=== PATIENT | male | born 1970 | race Asian ===

== ENCOUNTER → 2017-08-16 | Outpatient (CLI) | payer OTHER ==
[~2017-08-16] MED LIST: ASPI81CH PO; ATOR10 PO; LEVSOD50 PO; LISHYD1012 PO
== END | disposition home or self-care (01) ==
LOC: PLD 07:45 → LAB SHORT 07:45
DX: D23.39 Other benign neoplasm of skin of other parts of face (principal)
CPT/HCPCS: 88305

== ENCOUNTER 2024-10-20 10:00 | Day surgery (SDC) | payer OTHER ==
[~2024-10-20] VITALS: Ht 188 cm; Wt 91.0 kg
[~2024-10-20 10:00] MED LIST changes: -ASPI81CH PO; +Aspir 8181 MG PO; +DICL75ER PO; +LEVOTHYROXINE50 MC9 PO; -LEVSOD50 PO; -LISHYD1012 PO; +Lisinopril-Hct1 EAC4 PO
[2024-10-20] MEDS ORDERED: CeFAZolin Sodium 2,000 MG VIAL ONE (10:35)
[2024-10-20] MEDS ORDERED: Lactated Ringer's 1,000 ML IV ONE (10:44)
[2024-10-20] MEDS ORDERED: Bupivacaine 0.5% HCl 5 MG/ML 30MLVIAL INJ ONE (11:24)
[2024-10-20] MEDS ORDERED: propofoL 20 ML IV ONE (11:40)
[2024-10-20] MEDS ORDERED: FentaNYL Citrate 50 MCG/ML 2 ML Injection ONE (11:40)
[2024-10-20] MEDS ORDERED: Dexamethasone Sod Phos 10 MG/ML 1ML VIAL ONE (11:42)
[2024-10-20] MEDS ORDERED: Ondansetron HCl 2 MG / ML 2ML Vial ONE (11:42)
[2024-10-20] MEDS ORDERED: Ketorolac Tromethamine 30mg Vial ONE (11:42)
[2024-10-20 12:48] VITALS: BP 148/100
== END 2024-10-20 13:19 | disposition home or self-care (01) ==
LOC: ORSCSDS 10:00
PROVIDERS: Orthopaedic Surgery
PROC: 0JBK0ZX Excision of Left Hand Subcutaneous Tissue and Fascia, Open Approach, Diagnostic (ICD-10-PCS; principal; 2024-10-20 11:30)
DX: M67.442 Ganglion, left hand (principal); I10 Essential (primary) hypertension; E03.9 Hypothyroidism, unspecified; R73.03 Prediabetes; Z79.899 Other long term (current) drug therapy; Z79.82 Long term (current) use of aspirin
CPT/HCPCS: 88305; J0690; J1100; J1885; J2405; J2704; J3010; J7120